=== PATIENT | male | born 1995 ===

== ENCOUNTER 2018-05-15 13:42 | Emergency (ER) | payer OTHER ==
--- NOTE | 2018-05-15 14:23 | UC ---
Ear Complaint HPI - HPI Summary HPI Summary: 22 y/o male presents to the urgent care c/o b/l ear pain for the past month. pt reports he went [facility] the [facility] last months and was Dx w/ B/l otitis externa and Rx an otic antibiotic. Symptoms were resolving for a few day. But pain is returning for the past week now associated w/ mild dizziness at times. He has Hx of vertigo. Pain is 7/10 specially in the RT ear. Pt has taking Tylenol PO yesterday to alleviate symptoms. Pt denies fever, URI, YAO, SOB, chest pain, abdominal pain, N/V/D. - History of Current Complaint Chief Complaint: UCEar Stated Complaint: EAR PAIN Time Seen by Provider: 05/15/18 14:22 Hx Obtained From: Patient Onset/Duration: Gradual Onset, Lasting Weeks - 4 weeks, Still Present, Worse Since - 3 days w/ left ear pain Severity Initially: Mild Severity Currently: Moderate Pain Intensity: 7 Pain Scale Used: 0-10 Numeric Aggravating Factors: Other - sinus congestion Alleviating Factors: OTC Meds Associated Signs/Symptoms: Positive: URI Symptoms - Allergies/Home Medications Allergies/Adverse Reactions: Allergies Allergy/AdvReac Type Severity Reaction Status Date / Time No Known Allergies Allergy Verified 05/15/18 13:55 Home Medications: Home Medications Acetaminophen [Childrens Acetaminophen] 10 ml PO ONCE PRN 05/15/18 [History Confirmed 05/15/18] PMH/Surg Hx/FS Hx/Imm Hx Previously Healthy: Yes Psychological History: Anxiety - Surgical History Surgical History: None - Family History Known Family History: Positive: None - Pt denies FMHx - Social History Occupation: Employed Full-time Lives: With Family Alcohol Use: None Substance Use Type: None Smoking Status (MU): Never Smoked Tobacco Review of Systems Constitutional: Negative Skin: Negative Eyes: Negative ENT: Ear Ache - B/L ear pain, Nasal Discharge - clear, Other - mild dizziness Respiratory: Negative Cardiovascular: Negative Gastrointestinal: Negative Genitourinary: Negative Motor: Negative Neurovascular: Negative Musculoskeletal: Negative Neurological: Negative Psychological: Negative Is Patient Immunocompromised?: No All Other Systems Reviewed And Are Negative: Yes Physical Exam - Summary Physical Exam Summary: Vital signs: reviewed General: well developed, well nourished male sitting in the examining table w/o any apparent distress Skin: [place], warm and dry, no evidence of atopic dermatitis, psoriasis, seborrhea. HEENT: -Head: atraumatic, non tender; no scalp dermatitis. -Eyes: sclera and conjunctiva clear, PERRLA, EOMI -Ears: no pre- or postauricular lymphadenopathy or erythema; RT external ear canal clear, Rt TM injected w/ erythema and white discharge, LF external ear canal clear and LF TM dull w/ mild leight reflex. TMs normal w/out bulging or retraction. -Nose/Face: erythematous and edematous nasal mucosa with clear rhinorrhea, no frontal or maxillary sinus tender to palpation. -Mouth/Throat: Mucous membrane moist, posterior pharynx clear, no erythema or exudates. Neck: supple, FROM, nontender, no lymphadenopathy, no meningismus. Chest: Clear to auscultation, normal breath sounds Abd: soft, Bowel sounds active, Nontender. Back: no spinal or CVAT Neuro: A&O x4, GCS 15, no focal neuro deficits, normal behavior for age. Triage Information Reviewed: Yes Vital Signs: Initial Vital Signs Temp 99.2 F 05/15/18 13:52 Pulse 74 05/15/18 13:52 Resp 18 05/15/18 13:52 BP 117/74 05/15/18 13:52 Pulse Ox 98 05/15/18 13:52 Ear Complaint Course/Dx - Course Course Of Treatment: 22 y/o male presents to the urgent care c/o b/l ear pain for the past month. pt reports he went to the free clinic last months and was Dx w/ B/l otitis externa and Rx an otic antibiotic. Symptoms were resolving for a few day. But pain is returning for the past week now associated w/ mild dizziness at times. He has Hx of vertigo. Pain is 7/10 specially in the RT ear. Pt has taking Tylenol PO yesterday to alleviate symptoms. Pt denies fever, URI, YAO, SOB, chest pain, abdominal pain, N/V/D. Hx obtained. Pt w/ Rt otitis media and probably BPPV on examination. Pt Rx Amoxicillin PO and meclizine PO to alleviate symptoms. Pt advised if symptoms do not improve or worsen to f/u w/ ENT DR Muñoz for further management. D/C instructions explained. Pt understood and agreed with plan of care. - Differential Dx/Diagnosis Differential Diagnosis/HQI/PQRI: Cerumen Impaction, Otitis Externa, Otitis Media , Perforated TM, URI, Other - BPPV Provider Diagnoses: 1- RT otitis media. 2- Benign Paroxymal Positional Vertigo Discharge - Sign-Out/Discharge Documenting (check all that apply): Patient Departure - D/c home All imaging exams completed and their final reports reviewed: No Studies - Discharge Plan Condition: Stable Disposition: HOME Prescriptions: Amoxicillin PO (*) [Amoxicillin 875 MG (*)] 875 mg PO BID #20 tab Meclizine TAB* [Antivert 12.5 TAB*] 25 mg PO TID #21 tab Patient Education Materials: Ear Infection (ED), Benign Paroxysmal Positional Vertigo (ED) [place]: [facility] [place]] - 3 Days Faisal Muñoz MD [Medical Doctor] - 1 Week Additional Instructions: 1- Please take the full course of the antibiotic to avoid resistance. 2-Please continue taking ibuprofen PO q6-8hrs prn as instructed after meals to alleviate pain and swelling. 3- Please take Meclizine PO as directed to alleviate vertigo. 4-If symptoms do not improve or worsen please f/u w/ ENT Dr Muñoz in 1 week for further evaluation and treatment. - Billing Disposition and Condition Condition: STABLE Disposition: Home
== END 2018-05-15 15:10 | disposition home or self-care (01) ==
LOC: UCEAST 13:42
DX: H66.91 Otitis media, unspecified, right ear (principal); H81.10 Benign paroxysmal vertigo, unspecified ear
CPT/HCPCS: 99202; G0463